=== PATIENT | female | born 1985 | race Caucasian/White ===

== ENCOUNTER → 2022-08-13 14:18 | Outpatient (BNVA) | payer OTHER, MEDICAID, SELFPAY | PROVIDERS: PCP Internal Medicine; Visit Provider Physician Assistant | DX: M54.12 Radiculopathy, cervical region (principal) | CPT/HCPCS: 99212 ==

== ENCOUNTER 2023-02-01 14:50 | Outpatient (AMB) | payer MEDICAID, SELFPAY ==
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
== END 2023-02-01 15:56 | disposition home or self-care (01) ==
PROVIDERS: PCP Internal Medicine; Visit Provider Physician Assistant
DX: M54.12 Radiculopathy, cervical region (principal); M54.9 Dorsalgia, unspecified
CPT/HCPCS: 99213

== ENCOUNTER 2023-02-01 14:50 | Outpatient (REF) | payer MEDICAID, SELFPAY ==
--- NOTE | ~2023-02-01 | XR_ITS ---
EXAMINATION: XR CERVICAL SPINE CLINICAL INFORMATION: Radiculopathy in the cervical spine COMPARISON: MRI from July 2022 TECHNIQUE: AP, lateral, lateral flexion and extension views FINDINGS: Patient is status post anterior fusion at the level of C5-C7 with compression plate and screws. There is fusion of vertebral bodies and no instability. No instability seen on flexion and extension views also. Soft tissues are normal. XR/XR cervical spine 4V IMPRESSION: Postoperative fusion of C5-C7 with no instability or soft tissue abnormalities.
--- NOTE | ~2023-02-01 | XR_ITS ---
EXAMINATION: XR THORACOLUMBAR SPINE CLINICAL INFORMATION: Pain in thoracic COMPARISON: None available. TECHNIQUE: AP and lateral views of thoracic spine FINDINGS: The vertebral alignment is normal. No intrinsic bony abnormality. The disc heights and neural foramina are well maintained. The endplates and posterior elements are normal. No fracture or subluxation. The surrounding prevertebral soft tissues are unremarkable. XR/XR thoracic spine 2V IMPRESSION: No compression fractures or subluxations are identified. The disc spaces are preserved. No endplate changes are seen. The prevertebral soft tissues are normal. The foramina are patent.
== END 2023-02-01 14:51 | disposition home or self-care (01) ==
LOC: HO.HOSX 14:50
PROVIDERS: PCP Internal Medicine; Visit Provider Physician Assistant
DX: M54.12 Radiculopathy, cervical region (principal); M54.9 Dorsalgia, unspecified
CPT/HCPCS: 72050; 72070; 99212

== ENCOUNTER 2023-02-22 13:45 | Outpatient (AMB) | payer MEDICAID, SELFPAY ==
--- NOTE | 2023-02-22 13:56 | HO.SPINEOV ---
Intake Intake Visit Reasons: 3 weeks f/up Intake Note: Ms. Marcelo is here today for her 3wk f/up. Compliance Program Manager Required: No Assessment & Plan Assessment & Plan (1) Cervical radiculopathy: Code(s): M54.12 - Radiculopathy, cervical region Plan MRs Marcelo is here in follow up today to review her MRI in the setting of her neck pain, shoulder pain into her arms. Her cervical MRI was done at [facility] just a few weeks ago and indeed it shows there is some slight worsening of the disc herniation at C4-5 above her previous fusion. She has been through physical therapy, medication trials including anti-inflammatories, muscle relaxers etc.. I offered her the option of a cortisone injection at C4-5 but she has had previous bad experiences with those, and they never really gave her any positive affect. Her exam is nonfocal. At this point, she is fed up with things, she just lost her job because she could not deal with the pain in her neck anymore and the repetitive motions. I compared her MRI to the MRI she had done right before she had C5-6 and C6-7 fused and she has similar bulging now as to what she had then. She had a great response at the time of that surgery, so Dr. Candelaria and I offered her the option of C4-5 anterior cervical diskectomy and fusion. Pt was given risk and benefits of surgery including but not limited to infection, hematoma , nerve injury,durotomy, weakness,bowel/bladder injury, persistent pain, adjacent segment disease as well as the option to continue with conservative treatment and patient wishes to proceed with surgery. Pt is aware they should stop their motrin, aspirin 7 days prior to surgery. All questions were answered to the best of our ability. If there is anything about this patients medical history that we have overlooked or concerns you have about us proceeding with surgery we would appreciate any input you can offer Total amount of time spent in this visit was 20 minutes in discussion of symptoms, cervical MRI imaging results and subsequent plan of care Ryan Candelaria MD,PhD [facility]. Coding Level of Care Code Est Pt Level 3 (93429) Diagnoses Cervical radiculopathy M54.12
== END 2023-02-22 14:47 | disposition home or self-care (01) ==
PROVIDERS: PCP Internal Medicine; Visit Provider Physician Assistant
DX: M54.12 Radiculopathy, cervical region (principal)
CPT/HCPCS: 99213

== ENCOUNTER → 2023-02-22 13:45 | Outpatient (BNVA) | payer MEDICAID, SELFPAY | PROVIDERS: PCP Internal Medicine; Visit Provider Physician Assistant | DX: M54.12 Radiculopathy, cervical region (principal) | CPT/HCPCS: 99212 ==

== ENCOUNTER → 2023-05-26 13:57 | Outpatient (BNV) | payer MEDICAID, SELFPAY | PROVIDERS: PCP Internal Medicine; Visit Provider Internal Medicine Cardiovascular Disease | DX: R00.1 Bradycardia, unspecified (principal) | CPT/HCPCS: 93010 ==

== ENCOUNTER 2023-06-09 08:00 | Day surgery (SDC) | payer MEDICAID, SELFPAY ==
--- NOTE | 2023-05-26 | ECG_ITS ---
Test Reason : PREOP Blood Pressure : / mmHG Vent. Rate : 058 BPM Atrial Rate : 058 BPM P-R Int : 184 ms QRS Dur : 092 ms QT Int : 416 ms P-R-T Axes : 047 077 053 degrees QTc Int : 408 ms Sinus bradycardia with sinus arrhythmia Otherwise normal ECG No previous ECGs available Referred By: Piper Uriarte Electronically Signed By:DANIELLE SULLIVAN MD
[2023-05-26 13:27] VITALS: BP 111/64; PULSE 71; RESP 18; O2SAT 97; BMI 34.2
--- NOTE | 2023-05-26 13:42 | HO.ANESPROP2 ---
Documented by User: Piper Uriarte NP 06/08/23 08:49 HPI - Anesthesia Eval Consult details Narrative: 37yo F for C4-5 Ant Cerv Discectomy w/ fusion, 06/09/23 No recent illness No CP/SOB with walking/housework Vapes and smokeless/chew tobacco s/p spinal fusion 2014 Pt reports severe flushing with warming blankets PMFSH Active Problems Active Problems: All Active Problems (Updated 05/26/23 @ 13:14 by Francy Rodriguez RN) Back pain (Acute) Cervical radiculopathy (Acute) Past Medical History Medical History (Updated 05/26/23 @ 13:14 by Francy Rodriguez RN) IBS (irritable bowel syndrome) Depression Anxiety Numbness Family History Family history of problems with anesthesia: No Surgical History Surgical History (Updated 05/26/23 @ 13:15 by Francy Rodriguez RN) Hx of spinal fusion H/O colonoscopy History of Problems with Anesthesia: No Social History Social History Are you a primary home care giver to a significant other at home: No Do you presently have visiting nurse or other home services: No Patient Tobacco Use Status: Current everyday Tobacco user Tobacco use type: Smokeless Tobacco Meds Allergies Allergy/AdvReac Type Severity Reaction Status Date / Time acetaminophen [From NyQuil] Allergy Involuntary Verified 05/26/23 13:17 Spasms dextromethorphan Allergy Involuntary Verified 05/26/23 13:17 [From NyQuil] Spasms doxylamine [From NyQuil] Allergy Involuntary Verified 05/26/23 13:17 Spasms melatonin Allergy Involuntary Verified 05/26/23 13:17 Spasms pseudoephedrine [From NyQuil] Allergy Involuntary Verified 05/26/23 13:17 Spasms Home Medications Medication Instructions Recorded Confirmed Last Taken Type ibuprofen 800 mg tablet 800 mg PO Q8H PRN pain 05/26/23 05/26/23 Unknown History lorazepam 1 mg tablet 1 mg PO BEDTIME PRN Anxiety 05/26/23 05/26/23 Unknown History Exam Height,Weight and Vital Signs: Height 5 ft 6 in Weight 96.162 kg Last Vital Signs Pulse 71 05/26/23 13:27 Resp 18 05/26/23 13:27 BP 111/64 05/26/23 13:27 Pulse Ox 97 05/26/23 13:27 O2 Del Method Room Air 05/26/23 13:27 Pertinent Lab Results Pertinent Lab Results: CMP and CBC 10/2022 from outside facility Narrative Narrative: EKG 05/2022 Vent. Rate : 058 BPM Atrial Rate : 058 BPM P-R Int : 184 ms QRS Dur : 092 ms QT Int : 416 ms P-R-T Axes : 047 077 053 degrees QTc Int : 408 ms Sinus bradycardia with sinus arrhythmia Otherwise normal ECG No previous ECGs available Airway Neck ROM: Limited Loose/Missing/Broken Teeth: No (2 x molar crowns) Heart: RRR Lungs: CTAB Assessment and Plan Assessment Anesthesia Assessment: Anesthesia Plan Discussed, Smoking Cess. Discussed and PAT Visit Final Anesthetic Review Family History of Problems with Anesthesia: No History of Problems with Anesthesia: No Documented by User: Kareen Merritt MD 06/09/23 08:38 [facility] Past Medical History Medical History (Updated 05/26/23 @ 13:14 by Francy Rodriguez RN) IBS (irritable bowel syndrome) Depression Anxiety Numbness Surgical History Surgical History (Updated 05/26/23 @ 13:15 by Francy Rodriguez RN) Hx of spinal fusion H/O colonoscopy Social History Social History Are you a primary home care giver to a significant other at home: No Do you presently have visiting nurse or other home services: No Patient Tobacco Use Status: Current everyday Tobacco user Tobacco use type: Smokeless Tobacco Meds Allergies Allergy/AdvReac Type Severity Reaction Status Date / Time acetaminophen [From NyQuil] Allergy Involuntary Verified 05/26/23 13:17 Spasms dextromethorphan Allergy Involuntary Verified 05/26/23 13:17 [From NyQuil] Spasms doxylamine [From NyQuil] Allergy Involuntary Verified 05/26/23 13:17 Spasms melatonin Allergy Involuntary Verified 05/26/23 13:17 Spasms pseudoephedrine [From NyQuil] Allergy Involuntary Verified 05/26/23 13:17 Spasms Home Medications Medication Instructions Recorded Confirmed Last Taken Type ibuprofen 800 mg tablet 800 mg PO Q8H PRN pain 05/26/23 05/26/23 Unknown History lorazepam 1 mg tablet 1 mg PO BEDTIME PRN Anxiety 05/26/23 05/26/23 Unknown History Exam Airway Mallampati Class: II (2 caps laterally) TM Dist: >3cm Assessment and Plan Final Anesthetic Review NPO: Yes ASA Class: II Final Preanesthetic Review: No Changes in Pt Med Stat, Meds/Allgs Chart Reviewed and Consent Obtained/Reviewed Patient Risk: Low Procedure Risk: Intermediate Anesthetic Plan Anesthetic Plan: GA
[2023-06-09] VITALS (12 sets, daily range): BP systolic 104–119; BP diastolic 58–72; PULSE 55–91; RESP 12–18; TEMP 36.1–37.1; O2SAT 97–99; BMI 35.0
--- NOTE | ~2023-06-09 | FL_ITS ---
EXAMINATION: XR FLUOROSCOPY WITH IMAGES CLINICAL INFORMATION: C4-C5 anterior cervical discectomy and fusion. COMPARISON: Radiographs dated 02/01/2023. TECHNIQUE: Fluoroscopy Supervised By: Dr. Ryan Shook. Fluoroscopy Time: 4.3 seconds. Cumulative Dose: 1.1866 mGy. DAP: 0.4199 Gycm2. Images: 2. FINDINGS: The submitted images show an anterior Low Profile fixator devices situated the C4-C5 level. At C5-C6, there is an anterior fixator plate, with fixator screws. FL/FL guidance in OR IMPRESSION: Intraoperative fluoroscopic guidance is provided during C4-C5 anterior cervical discectomy and fusion. Please see the patient's Operative Report for full procedural details.
--- NOTE | 2023-06-09 07:16 | P.HPSUR_ITS ---
Pre-Procedural Eval Section A - 24 Hr Update-Section A only Date of Service: 06/09/23 The patient is an INPATIENT: No Changes since office visit: No Cold of Flu in the past 2 weeks, No New Medical Problems, No Changes in Medication and No Patient answered all questions The patient has been examined within 24 hours of the surgical procedure. The History & Physical has been completed within 30 days and I have reviewed it.: No Section B - Complete if H&P > 30 days Chief Complaint: Radiculopathy, cervical region Allergies: Allergies Allergy/AdvReac Type Severity Reaction Status Date / Time acetaminophen [From NyQuil] Allergy Involuntary Verified 05/26/23 13:17 Spasms dextromethorphan Allergy Involuntary Verified 05/26/23 13:17 [From NyQuil] Spasms doxylamine [From NyQuil] Allergy Involuntary Verified 05/26/23 13:17 Spasms melatonin Allergy Involuntary Verified 05/26/23 13:17 Spasms pseudoephedrine [From NyQuil] Allergy Involuntary Verified 05/26/23 13:17 Spasms Review of Systems Sugical H&P ROS: Negative: Constitution, Cardiovascular, Respiratory, Neurolo gical, Psychiatric, Hem-Onc, Allergic/Immunologic, Gastrointestinal, Genitourinary, Musculoskeletal, Integumentary, Endocrine and Eyes/Ears/Nose/Throat Exam Surgical H&P Exam: Not Evaluated: HEENT, Not Evaluated: Heart, Not Evaluated: Lungs, Not Evaluated: Extremities, Not Evaluated: Abdomen, Not Evaluated: Skin and Not Evaluated: Neurological Plan Diagnosis/Plan: Unchanged C4-5 anterior cervical diskectomy and fusion Time Spent With Patient Time: Total time managing care of this patient today __5__ minutes.
--- OUTSIDE RECORDS SUMMARY | 2023-06-09 08:10 | XMS_ITS | Continuity of Care Document ---
Author Name Unknown Organization [facility] Address [address] [place] [address]- Care Team Providers Care Industrial Spray Painter Name Role Phone David Albright DO Primary Care Physician Encounter [facility] Date(s): 11/19/22 - 11/19/[address] [address]- Discharge Disposition: A-D/C Home Attending Physician: Israel Banks MD Admitting Physician: Israel Banks MD Referring Physician: Not on Staff, Referring MD Allergies, Adverse Reactions, Alerts Substance Reaction Severity Status Diphendramine HCL Restless leg syndrome A ctive Immunizations Given and Recorded Vaccine Date Status Refusal Reason influenza virus vaccine, inactivated 02/14/07 Give n Human Papillomavirus Vaccine 1 02/14/07 Given Human Papillomavirus Vaccine 2 10/03/06 Given Human Papillomavirus Vaccine 3 07/27/06 Given Tet/Diphth/Acel, Pertussis (oldterm) 4 06/28/06 Gi santos Meningococcal Conjugate Vaccine 5 06/28/06 Given Influenza Live (intranasal) (oldterm) 6 03/30/06 G iven Influenza Live (intranasal) (oldterm) 7 05/04/04 G iven Hepatitis B Vaccine (old term) 10/22/03 Given Hepatitis B Vaccine (old term) 07/08/03 Given Hepatitis B Vaccine (old term) 05/23/01 Given tetanus-diphtheria toxoids (Td) 05/23/01 Given Measles/Mumps/Rubella Virus Vaccine 01/28/98 Given Measles/Mumps/Rubella Virus Vaccine 04/12/89 Given Poliovirus Vaccine, Inactivated 02/11/93 Given Poliovirus Vaccine, Inactivated 07/18/89 Given Poliovirus Vaccine, Inactivated 05/22/88 Given Poliovirus Vaccine, Inactivated 03/15/88 Given Diphth/Pertussis,Acel/Tetanus (oldterm) 02/11/93 G iven Diphth/Pertussis,Acel/Tetanus (oldterm) 07/18/89 G iven Diphth/Pertussis,Acel/Tetanus (oldterm) 07/15/88 G iven Diphth/Pertussis,Acel/Tetanus (oldterm) 05/22/88 G iven Diphth/Pertussis,Acel/Tetanus (oldterm) 03/15/88 G iven Haemophilus B Conj Vaccine (oldterm) 07/18/89 Give n 1Admin Note: gardisil #3 2Admin Note: #2 gardisil 3Admin Note: gardasil private #1 4Admin Note: Adacel 5Admin Note: State 6Admin Note: FLUMIST 7Admin Note: FLUMIST Medications gabapentin 100 mg oral capsule 100 mg, 1, capsule, By Mouth, Daily, Refills 0, Maintenance, 03/24/22 11:56:00 EST, Partial fill upon patient request if the prescription is for a schedule II opioid drug. Start Date: 03/24/22 Status: Ordered Junel Fe 1.5/30 oral tablet 1 tablet, By Mouth, Daily, # 28 tablet, 0 Refills, Maintenance, 03/31/17 9:42:46, Tablet Start Date: 03/31/17 Status: Ordered LORazepam 1 mg oral tablet 1 tablet = 1 mg, By Mouth, Daily, 0 Refills, Maintenance, 03/24/22 11:56:00 EST, Tablet, Partial fill upon patient request if the prescription is for a schedule II opioid drug. Start Date: 03/24/22 Status: Ordered Vitamin D3 oral tablet 1 tablet = 10 mcg, By Mouth, Daily, # 30 tablet, 0 Refills, Maintenance, 06/05/22 14:32:00 EST, Tablet, Partial fill upon patient request if the prescription is for a schedule II opioid drug. Start Date: 06/05/22 Status: Ordered Problem List Condition Confirmation Course Effective Dates Status Health St atus Informant Obese class I Confirmed Active Vital Signs Most recent to oldest [Reference Range]: 1 2 3 Height 168 cm (11/19/22 12:53 PM) 168 cm (11/19/22 10:04 AM) Weight 91 kg (11/19/22 12:53 PM) 91 kg (11/19/22 10:04 AM) Oxygen Saturation [94-100 %] 100 % (7/28/23 12:53 PM) 98 % (11/19/22 10:04 AM) 99 % (11/19/22 10:04 AM) Pulse Rate [55-90 bpm] 52 bpm *L* (11/19/22 12:53 PM) 88 bpm (11/19/22 10:04 AM) 57 bpm (11/19/22 10:04 AM) Body Mass Index [18.5-24.99 kg/m2] 32.24 kg/m2 *>HHI* (11/19/22 12:53 PM) Blood Pressure [90-138/55-84 mm Hg] 109/65mm Hg (11/19/22 12:53 PM) 127/59mm Hg (11/19/22 10:04 AM) Respiratory Rate [16-30 br/min] 19 br/min (11/19/22 12:53 PM) 20 br/min (11/19/22 10:04 AM) 18 br/min (11/19/22 10:04 AM) Temperature [96.8-100.4 DegF] 97.3 DegF (11/19/22 10:04 AM) Mode of Delivery (Oxygen) Room air (11/19/22 12:53 PM) Room air (11/19/22 10:04 AM) Room air (11/19/22 10:04 AM) Blood pressure sites Arm, right (11/19/22 12:53 PM) Temperature Route Temporal (11/19/22 10:04 AM) Dry Weight 91 kg (11/19/22 12:53 PM) 91 kg (11/19/22 10:04 AM) Social History Social History Type Response Smoking Status Never smoker entered on: 08/27/14 Sex Note * Darren GARCIA, Israel Kelly: PERFORM Event Display: Patient Education Leaflets Authored Date: [id number] Unknown Causes of Abdominal Pain (Adult) ?? [id number] Unknown Causes of Abdominal Pain (Adult) The exact cause of your belly (abdominal) pain is not clear. Your exam and tests don't suggest a dangerous cause at this time. This does not mean that this is something to worry about. Everyone likesto know the exact cause of the problem. But sometimes with belly pain, there is no clear-cut cause,and this could be a good thing. Your symptoms can be treated, and you should feel better.?? Your condition does not seem serious now. But sometimes the signs of a serious problem may take more time to appear. For this reason,??it's important for you to watch for any new symptoms, problems,??or worsening of your condition. Over the next few days, the abdominal pain may come and go. Or it may be constant. Other common symptoms can include nausea and vomiting. Sometimes it can be difficult to tell if you feel nauseous. You may just feel bad and not connect that feeling to nausea. Constipation, diarrhea, and a fever maygo along with the pain. The pain may continue even if treated correctly over the following days. Depending on how things go, sometimes the cause can become clear and you may need more??or different treatment. You may also need other evaluations, medicines, or tests. Home care Your healthcare provider may prescribe medicine for pain, symptoms, or an infection. ??Follow the healthcare provider's instructions for taking these medicines. General care ??? Rest as much as you can until your next exam. No strenuous activities. ??? Try to not do anything that may have caused your symptoms. This might be not taking any medicines unless otherwise directed by your healthcare provider. It might be not eating certain foods or doing certain activities. ??? Find positions that ease discomfort. A small pillow placed on your belly may help relieve pain. ??? Something warm on your belly such as a heating pad may help, but be careful not to burn yourself. Diet ??? Don???t??force yourself to eat, especially if having cramps, vomiting, or diarrhea. ??? Water is important so you don't get dehydrated. Soup may also be good. Sports drinks may also help, especially if they are not too acidic. Don't drink sugary drinks as this can make things worse. Take liquids in small amounts. Don???t??guzzle them. ??? Caffeine sometimes makes the pain and cramping worse. ??? Don???t take??dairy products if you have vomiting or diarrhea. ??? Don't eat large amounts at a time. Eat several small meals during the day instead of 2 or 3 larger meals. Wait a few minutesbetween bites. ??? Eat a diet low in fiber (called a low-residue diet). Foods allowed include refined breads, white rice, fruit and vegetable juices without pulp, tender meats. These foods will pass more easily through the intestine. ??? Don???t have??whole-grain foods, whole fruits and vegetables,meats, seeds and nuts, fried or fatty foods, dairy, alcohol and spicy foods until your symptoms go away. ?? Follow-up care Follow up with your healthcare provider, or as advised, if your pain does not begin to improve in the next 24 hours. ?? Call 911 Call?? 911 if any of these occur: ??? Trouble breathing ??? Confusion ??? Fainting or loss of consciousness ??? Rapid heart rate ??? Seizure ?? When to seek medical advice Call your healthcare provider right away if any of these occur: ??? Pain gets worse or moves to theright lower abdomen ??? New or worsening vomiting or diarrhea ??? Swelling of the abdomen ??? Unable to pass stool for more than??3 days ??? Fever of 100.4??F (38??C) or higher, or as directed by your healthcare provider ??? Blood in vomit or bowel movements (dark red or black color) ??? Yellow color of eyes and skin (jaundice) ??? Weakness, dizziness ??? Chest, arm, back, neck, or jaw pain ??? Can't keep down medicines, liquids, or water because of too much vomiting ??? If you have a vagina: unexpected vaginal bleeding or missed period ?? Last Reviewed Date: 2021 ?? [id number] The [employer]. All rights reserved. This information is not intended as a substitute for professional medical care. Always follow your healthcare professional's instructions. ?? Patient Care team information Care Team Personnel Name: Cruzito Nayak MD Position: [facility] Physician - Pediatrics Member Role: Lifetime Consulting Physician Address: Address: [address] [place] [address] [place] [address]- Name: David Albright DO Position: [facility] Physician - Primary Care Member Role: PCP Address: Address: [address] [place] [address] [address] [place] [address]- [place] Name: Israel Banks MD Position: [facility] ED Medicine MD Member Role: Admitting Physician Address: Address: [address] [place] [address] [place] [address]- Name: Marge Jeffrey Position: [facility] ED TA [facility] Member Role: Patient Care Provider Name: Betty Pradhan RN Position: [facility] ED RN W/OE and Tasks Member Role: Patient Care Provider Name: Wilma Amaro Position: [facility] ED [facility] Member Role: E Commerce Strategist Care Team Related Persons Name: SHUN STEPHENSON Address: [place] [address] Name: IRIS STEPHENSON Address: home [address] [place] [address]
--- OUTSIDE RECORDS SUMMARY | 2023-06-09 08:10 | XMS_ITS | Continuity of Care Document ---
Author Name Unknown Organization [facility] Address [address] [place] [id number]- Care Team Providers Care Director Of Photography Name Role Phone David Albright DO Primary Care Physician Encounter [facility] Date(s): 11/23/22 - 12/23/22 [facility] [address] [place] [id number]- Allergies, Adverse Reactions, Alerts Substance Reaction Severity [...] atus Informant Obese class I Confirmed Active Social History Social History Type Response Smoking Status Never smoker entered on: 08/27/14 Sex Patient Care team information Care Team Personnel Name: Cruzito Nayak MD Position: [facility] Physician - Pediatrics Member Role: Lifetime Consulting Physician Address: Address: [address] [place] [address] [place] [address]- Name: David Albright DO Position: [facility] Physician - Primary Care Member Role: PCP Address: Address: [address] [place], [place] [id number] [place] [address]- [place] Care Team Related Persons Name: SHUN STEPHENSON Address: [place] [address] Name: IRIS STEPHENSON Address: home [address] [place] [address]
--- OUTSIDE RECORDS SUMMARY | 2023-06-09 08:10 | XMS_ITS | Continuity of Care Document ---
Author Name Unknown Organization [facility] Address [address] [facility] [facility] [place] [address]- Care Team Providers Care Banquet Food Server Name Role Phone David Albright DO Primary Care Physician [place] [facility] [place]23 - 03/05/23 [facility] [address] [place] [address]- Attending Physician: AdmDoug padilla Admitting Physician: AdmtrDoug Referring Physician: Admtr, ArNash Allergies, Adverse Reactions, Alerts Substance Reaction Severity [...] Care team information Care Team Personnel Name: Nael GARCIA, Cruzito Mcleod Position: [facility] Physician - Pediatrics Member Role: Lifetime Consulting Physician Address: Address: [address] [place] [address] [place] [address]- [place] Name: David Albright DO Position: S Physician - Primary Care Member Role: PCP Address: Address: [address] [place] [address] [address] [place] [address]- Care Team Related Persons Name: SHUN STEPHENSON Address: [place] [address] Name: IRIS STEPHENSON Address: home [address] [place] [address]
--- OUTSIDE RECORDS SUMMARY | 2023-06-09 08:10 | XMS_ITS | Continuity of Care Document ---
Author Name Unknown Organization [facility] Address [address] [facility] [place] [address]- Care Team Providers Care Taker Out Name Role Phone David Albright DO Primary Care Physician Encounter [facility] [place](s): 01/20/23 - 03/05/23 [facility] [address] [place] [address]- Attending Physician: Gonzalez Dozier MD Admitting Physician: Gonzalez Dozier MD Referring Physician: David Albright DO Allergies, Adverse Reactions, Alerts Substance Reaction Severity [...] Team Personnel Name: Cruzito Nayak MD Position: [facility] Physician - Pediatrics Member Role: Lifetime Consulting Physician Address: Address: [address] [place] [address] Pediatric Services [facility] [place] [address]- Name: David Albright DO Position: S Physician - Primary Care Member Role: PCP Address: Address: [address] [place] [address] [address] [place] [address]- Care Team Related Persons Name: SHUN STEPHENSON Address: [place] [address] Name: IRIS STEPHENSON Address: home [address] [place] [address]
[2023-06-09 08:18] LABS: UPreg QC Valid YES; Urine Pregnancy NEGATIVE (NEGATIVE)
[2023-06-09] MEDS: Gabapentin 300 MG CAPSULE PO (08:47)
[2023-06-09] MEDS: methocarbamoL 750 MG TABLET PO (08:47)
[2023-06-09] MEDS: Lactated Ringers 1,000 ML 100 ML IVCONT (09:07)
[2023-06-09] MEDS: Midazolam HCl 5 MG/ML VIAL 2 MG IVPUSH (09:19)
--- NOTE | 2023-06-09 11:24 | W.PM.OPN ---
Operative Note Operative Note Date of Service: 06/09/23 Narrative: Preoperative Diagnosis: Adjacent degenerative disc disease with neck pain Procedure: C4-5 Anterior discectomy, arthrodesis and implantation cage ; C4-5 anterior instrumentation ; local autograft; microscope Informed Consent was obtained for this operation. I have explained the nature, purpose and benefits of the operation. I have discussed the risks and benefit of the operation including possible complications or adverse events with patient/family. Alternative(s) were discussed with the patient with their relative benefits and risks as well as the consequences of not accepting the operation were included in obtaining consent. Surgeon: ALICJA CHIRINOS MD, PHD Procedure Assisted By: isaac Castrejon Description of Procedure: This patient is suffering from intractable neck pain. She status post C5-C6 and C6-7 anterior diskectomy and fusion in another institution. MRI shows adjacent degenerative disc disease with a central small disc herniation. She was offered an anterior diskectomy and fusion C4-C5. The procedure complications were explained. The patient was consented. The patient was brought to the operating room and endotracheally intubated. The patient was put in supine position with slight extension of the neck. Prep and drape was done followed by timeout. A mid cervical incision was made followed by opening of the platysma. The prevertebral fascia was reached following the natural planes while the physician psychological assistant provided manual retraction. The prevertebral fascia was opened to expose the disc space. A spinal needle was placed in the disk space to confirm the correct level with xray. The longus colli muscles were released bilaterally and a self retaining retractor was inserted. Two [place] pins were placed in the C4 and C5 vertebral bodies and distraction was give over the interspace. The discectomy was completed toward the posterior annulus of the disc. The microscope was brought in. The remainder of the discectomy was completed. The posterior ligament was opened and resected to expose the underlying dura. Osteophytes were resected from the body of C4 and C5 and saved for autograft. Bilateral foraminotomies were done. The endplates were prepared after which a 5 mm cage filled with autograft was inserted into the disc space. A separate attached plate was locked down with 2 x 14 mm screws as anterior instrumentation. Final x-rays in AP and lateral projection showed a satisfactory position of the implant. The physician psychological assistant took over. The [place] pin was removed. Hemostasis was done. He closed the incision in 2 layers with a 3-0 Vicryl. Steri-Strips used to approximate incision. An OpSite with Tegaderm was used to cover the incision. All sponge and needle counts were correct. Patient was extubated and transported in stable is to recovery room. Anesthesia: General Estimated Blood Loss (ml): 10 mL Duration of Surgery: 60 minutes Postoperative Plan: Discharge home Complications: None
--- NOTE | 2023-06-09 11:34 | PM.DS ---
DS: Providers Provider Date of Service: 06/09/23 Date of discharge: 06/09/23 Primary care physician: David Albright DO, MD Admitting clinician: Atif Candelaria DS: Diagnosis Discharge Diagnosis (1) Cervical radiculopathy: Status: Acute DS: Summary Time Attestation Discharge coordination time: Less than 30 minutes Quality: Safe Use of Opioids Does Pt have an Active Cancer Diagnosis on the Problem List?: No Quality: Stroke Does the patient have a stroke diagnosis?: No Physical Exam Vital Signs: Vital Signs: Last Vital Signs Temp 98.2 F 06/09/23 08:33 Pulse 62 06/09/23 08:33 Resp 18 06/09/23 08:33 BP 111/61 06/09/23 08:33 Pulse Ox 98 06/09/23 08:33 O2 Del Method Room Air 06/09/23 08:33 BMI result Body Mass Index 35.0 DS: Data Data Completed and Pending Labs on day of discharge: Laboratory Results - last 24 hr 06/09/23 08:05 Urine Test NEGATIVE Discharge Plan Discharge Patient Disposition: Home, Self-Care Referrals: David Albright DO, MD [Primary Care Provider] - 1 Week Discharge Medications: New oxycodone 5 mg tablet 5 mg PO Q4H PRN (Reason: pain) Qty: 30 0RF Rx Instructions: Partial Fill upon patient request. Continued ibuprofen 800 mg tablet 800 mg PO Q8H PRN (Reason: pain) lorazepam 1 mg tablet 1 mg PO BEDTIME PRN (Reason: Anxiety) Discharge Orders: Discharge Order (Routine); Ordered 06/09/23 Ordered By: Ryan Shook Diet: Advance to usual diet Activity on Discharge: As tolerated Activity Restrictions/Additional Instructions: After your spinal surgery we ask you to observe the following restrictions/guidelines: Activity: It is normal to feel some discomfort as you increase your activity, but that will improve with time. We ask you avoid heavy lifting or acitivities that cause pain. As a general rule, 8lbs is a safe limit for lifting right after surgery. Walk as much as you feel comfortable but not to exhaustion. You will feel extra tired the first few days after surgery. Stay well hydrated. It is OK to walk up and down stairs You may return to driving when you are off narcotics (such as vicodin, oxycodone, dilaudid, etc), and you are back to normal functional capacity. If you have any concerns please check with office before driving. Return to work is specific to each patient and each surgery, so please speak with your doctor/PA at first follow up. Please bring paperwork such as FMLA at that time if you need it filled out. Medications: For optimum pain control, it is best to start with a combination of 500 mg of Tylenol every 4 hours with 600 mg of Motrin every 8 hours, and use narcotics as needed in between for breakthrough pain. We will give you a short supply of narcotics after surgery (usually one weeks worth). If you need more please call the office but do not use more than prescribed. You will need to give our office 48 hours notice if you need narcotics refilled and we do not fill narcotics on weekends or evenings. If you are on a narcotic, it is a good idea to take a stool softener such as colace or senna to avoid constipation If you take blood thinner such as aspirin, Plavix, Coumadin, Effient, Eliquis etc for conditions such as Afib, DVT, Pulmonary embolus, coronary disease, stents etc please speak with your surgeon about specific details as to when you can resume these medications. You can resume NSAIDs on post op day 1 (eg: Motrin, Naproxen, etc). Follow up: Please call the office, , after surgery to arrange a 3 week follow up for wound check. Wound Care: You may remove your dressing on the first day after surgery. ?You may ?leave open to air. Please do not remove the steri strips underneath. they will fall off on their own in one week. IT IS NORMAL FOR THE WOUND TO OOZE OR BE BLOODY FOR A FEW DAYS AFTER SURGERY. ?IF THIS HAPPENS JUST PLACE NEW DRESSING OVER IT TO AVOID STAINING CLOTHES. You may shower on post op day # 1 We ask that you do not let the water soak the wound. If it does get wet, just towel dry lightly. Please do not scrub your incision or place any type of chemical/ointment on the wound. No tub baths, pools or jacuzzis for one month. If you have any leaking or redness from your wound, or fevers, please call office
[2023-06-09] MEDS: ondansetron HCL 4 MG/2 ML VIAL IVPUSH (12:19)
--- NOTE | 2023-06-09 12:56 | PM.DS ---
DS: Providers Provider Date of Service: 06/09/23 Primary care physician: David Albright DO, MD DS: Diagnosis Discharge Diagnosis (1) Cervical radiculopathy: Status: Acute DS: Summary Time Attestation Discharge coordination time: Less than 30 minutes Quality: Safe Use of Opioids Does Pt have an Active Cancer Diagnosis on the Problem List?: No Quality: Stroke Does the patient have a stroke diagnosis?: No Physical Exam Vital Signs: Vital Signs: Last Vital Signs Temp 98.8 F 06/09/23 11:48 Pulse 66 06/09/23 12:15 Resp 16 06/09/23 12:15 BP 110/60 06/09/23 12:15 Pulse Ox 98 06/09/23 12:15 O2 Del Method Simple Mask 06/09/23 12:15 O2 Flow Rate 6 06/09/23 12:15 BMI result Body Mass Index 35.0 DS: Data Data Completed and Pending Labs on day of discharge: Laboratory Results - last 24 hr 06/09/23 08:05 Urine Test NEGATIVE Discharge Plan Discharge Patient Disposition: Home, Self-Care Referrals: David Albright DO, MD [Primary Care Provider] - 1 Week Discharge Medications: New oxycodone 5 mg tablet 5 mg PO Q4H PRN (Reason: pain) Qty: 30 0RF Rx Instructions: Partial Fill upon patient request. ondansetron 4 mg tablet,disintegrating 4 mg PO Q8H PRN (Reason: nausea and vomiting) 4 Days Qty: 20 0RF Continued ibuprofen 800 mg tablet 800 mg PO Q8H PRN (Reason: pain) lorazepam 1 mg tablet 1 mg PO BEDTIME PRN (Reason: Anxiety) Discharge Orders: Discharge Order (Routine); Ordered 06/09/23 Ordered By: Ryan Shook Diet: Advance to usual diet Activity on Discharge: As tolerated Activity Restrictions/Additional Instructions: After your spinal surgery we ask you to observe the following restrictions/guidelines: Activity: It is normal to feel some discomfort as you increase your activity, but that will improve with time. We ask you avoid heavy lifting or acitivities that cause pain. As a general rule, 8lbs is a safe limit for lifting right after surgery. Walk as much as you feel comfortable but not to exhaustion. You will feel extra tired the first few days after surgery. Stay well hydrated. It is OK to walk up and down stairs You may return to driving when you are off narcotics (such as vicodin, oxycodone, dilaudid, etc), and you are back to normal functional capacity. If you have any concerns please check with office before driving. Return to work is specific to each patient and each surgery, so please speak with your doctor/PA at first follow up. Please bring paperwork such as FMLA at that time if you need it filled out. Medications: For optimum pain control, it is best to start with a combination of 500 mg of Tylenol every 4 hours with 600 mg of Motrin every 8 hours, and use narcotics as needed in between for breakthrough pain. We will give you a short supply of narcotics after surgery (usually one weeks worth). If you need more please call the office but do not use more than prescribed. You will need to give our office 48 hours notice if you need narcotics refilled and we do not fill narcotics on weekends or evenings. If you are on a narcotic, it is a good idea to take a stool softener such as colace or senna to avoid constipation If you take blood thinner such as aspirin, Plavix, Coumadin, Effient, Eliquis etc for conditions such as Afib, DVT, Pulmonary embolus, coronary disease, stents etc please speak with your surgeon about specific details as to when you can resume these medications. You can resume NSAIDs on post op day 1 (eg: Motrin, Naproxen, etc). Follow up: Please call the office, , after surgery to arrange a 3 week follow up for wound check. Wound Care: You may remove your dressing on the first day after surgery. ?You may ?leave open to air. Please do not remove the steri strips underneath. they will fall off on their own in one week. IT IS NORMAL FOR THE WOUND TO OOZE OR BE BLOODY FOR A FEW DAYS AFTER SURGERY. ?IF THIS HAPPENS JUST PLACE NEW DRESSING OVER IT TO AVOID STAINING CLOTHES. You may shower on post op day # 1 We ask that you do not let the water soak the wound. If it does get wet, just towel dry lightly. Please do not scrub your incision or place any type of chemical/ointment on the wound. No tub baths, pools or jacuzzis for one month. If you have any leaking or redness from your wound, or fevers, please call office
[2023-06-09] MEDS: oxyCODONE HCl Immed Release 5 MG TABLET PO (13:15)
[2023-06-09] MEDS: fentaNYL citrate/PF 100 MCG/2 ML VIAL 50 MCG IVPUSH (13:15)
== END 2023-06-09 15:15 | disposition home or self-care (01) ==
PROVIDERS: Nurse Practitioner; PCP Internal Medicine; Visit Provider Neurological Surgery
PROC: (CPT 22551; principal; 2023-06-09 10:20)
DX: M54.12 Radiculopathy, cervical region (principal); Z98.1 Arthrodesis status
CPT/HCPCS: 22551; 22853; 22845; 20936; 81025; 93005; C1713; J0131; J0690; J1100; J1170; J2250; J2405; J2704; J3010

== ENCOUNTER → 2023-06-09 08:00 | Outpatient (BNV) | payer MEDICAID, SELFPAY | PROVIDERS: PCP Internal Medicine; Visit Provider Neurological Surgery | DX: M54.12 Radiculopathy, cervical region (principal) | CPT/HCPCS: 20936; 22551; 22845; 22853; 99499 ==

== ENCOUNTER 2023-06-30 13:45 | Outpatient (AMB) | payer MEDICAID, SELFPAY ==
--- NOTE | 2023-06-30 13:47 | HO.SPINEOV ---
Intake Intake Visit Reasons: 1st post op Intake Note: Ms. Marcelo is here today for 1st Post op. Applications Tester Required: No Allergies acetaminophen [From NyQuil] Allergy (Verified 05/26/23 13:17) Involuntary Spasms dextromethorphan [From NyQuil] Allergy (Verified 05/26/23 13:17) Involuntary Spasms doxylamine [From NyQuil] Allergy (Verified 05/26/23 13:17) Involuntary Spasms melatonin Allergy (Verified 05/26/23 13:17) Involuntary Spasms pseudoephedrine [From NyQuil] Allergy (Verified 05/26/23 13:17) Involuntary Spasms Assessment & Plan Assessment & Plan (1) Cervical radiculopathy: Code(s): M54.12 - Radiculopathy, cervical region Plan Mrs Marcelo is here in follow-up today for her 1st postoperative visit. She is about 3-4 weeks out from her ACDF C4-5. The neck pain that she had before surgery is gone. She does have postoperative neck pain and discomfort at times when she turns her head in different directions. The arm pains that she was having before surgery are gone. She is having little bit of discomfort around her incision site and some numbness up under her chin. I suspect all that will get better in time. She is slowly increase her activities as directed. We discussed activity guidelines, restrictions and expectations after anterior cervical fusion. I would like to see her back in 6 weeks with a set of x-rays. Overall she is doing great. Ryan Candelaria MD, PhD [facility] Orders: Orders XR cervical spine 4V Today M54.12 - Radiculopathy, cervical region Coding Level of Care Code Global (72612) Diagnoses Cervical radiculopathy M54.12
== END 2023-06-30 14:05 | disposition home or self-care (01) ==
PROVIDERS: PCP Internal Medicine; Visit Provider Physician Assistant
DX: M54.12 Radiculopathy, cervical region (principal)
CPT/HCPCS: 99024

== ENCOUNTER 2023-06-30 13:45 | Outpatient (REF) | payer MEDICAID, SELFPAY | END 2023-06-30 13:46 | disposition home or self-care (01) | LOC: HO.HOSX 13:45 | PROVIDERS: PCP Internal Medicine; Visit Provider Physician Assistant | DX: M54.12 Radiculopathy, cervical region (principal); Z47.89 Encounter for other orthopedic aftercare | CPT/HCPCS: 99212 ==

== ENCOUNTER 2023-07-27 10:07 | Outpatient (REF) | payer MEDICAID, SELFPAY ==
--- NOTE | ~2023-07-27 | XR_ITS ---
EXAMINATION: XR CERVICAL SPINE CLINICAL INFORMATION: Radiculopathy COMPARISON: Cervical spine x-rays February 01, 2023 TECHNIQUE: 4 views of the cervical spine were obtained. FINDINGS: The cervical spine is visualized in its entirety. There is stable anterior fusion of C5-C7 with interval ACDF of C4 on C5. There is no evidence of hardware failure. Alignment is within normal limits on neutral positioning although there is mild anterolisthesis of C3 on C4 with flexion positioning. The cervical vertebral body heights are maintained. The C2/3 and C3/4 cervical vertebral body heights are maintained. No prevertebral soft tissue swelling. Visualized lung apices are well aerated. XR/XR cervical spine 4V IMPRESSION: 1. Postsurgical changes of the cervical spine. No evidence of hardware failure. 2. Alignment is within normal limits on neutral positioning although there is mild anterolisthesis of C3 on C4 with flexion positioning.
== END 2023-07-27 10:08 | disposition home or self-care (01) ==
LOC: HO.HOSX 10:07
PROVIDERS: Visit Provider Physician Assistant
DX: M54.12 Radiculopathy, cervical region (principal); Z47.89 Encounter for other orthopedic aftercare
CPT/HCPCS: 72050; 99212

== ENCOUNTER 2023-07-27 11:12 | Outpatient (AMB) | payer MEDICAID, SELFPAY ==
--- NOTE | 2023-07-27 11:24 | HO.SPINEOV ---
Intake Intake Visit Reasons: Post-Op Intake Note: Ms. Marcelo is here for 2nd post op Lieutenant General Required: No Allergies acetaminophen [From NyQuil] Allergy (Verified 05/26/23 13:17) Involuntary Spasms dextromethorphan [From NyQuil] Allergy (Verified 05/26/23 13:17) Involuntary Spasms doxylamine [From NyQuil] Allergy (Verified 05/26/23 13:17) Involuntary Spasms melatonin Allergy (Verified 05/26/23 13:17) Involuntary Spasms pseudoephedrine [From NyQuil] Allergy (Verified 05/26/23 13:17) Involuntary Spasms Assessment & Plan Assessment & Plan (1) Cervicalgia: Code(s): M54.2 - Cervicalgia Plan Procedure: C4-5 ACDF Keisha comes in today for a subsequent follow up visit. She called the office yesterday stating that she was having quite a bit of pain in her posterior neck. She was requesting an earlier appointment to discuss this. I put her on the schedule for today. She states that she began having worsening posterior neck pain since late last week, and feels it is very well localized without radiation down her arms. No associate numbness / tingling or burning. OTCs have not been helpful. I discussed the possibility of trapezius irritation post-operatively, and advised her that this symptom is very common after our ACDF procedures. No new neurological deficits. Patient is able to ambulate well, rises from a seated position without difficulty. Incision sites are closed, well healing, with no signs of drainage. I will prescribe her a short course of Cyclobenzaprine QHS x 14 days. She was also encouaged to utilize buprofen and he. The patient requested to keep her appointment with PASQUALE Shook in 2 weeks to discuss progress after muscle relaxers and ibuprofen/heat. Augustine Candelaria MD,PhD [facility] Medications: New cyclobenzaprine 10 mg PO BEDTIME 14 tabs 0RF muscle spasms Coding Level of Care Code Global (32502) Diagnoses Cervicalgia M54.2
== END 2023-07-27 11:41 | disposition home or self-care (01) ==
PROVIDERS: PCP Internal Medicine; Visit Provider Physician Assistant
DX: M54.2 Cervicalgia (principal)
CPT/HCPCS: 99024

== ENCOUNTER 2023-08-12 11:30 | Outpatient (AMB) | payer MEDICAID, SELFPAY ==
--- NOTE | 2023-08-12 11:31 | HO.SPINEOV ---
Intake Visit Reasons: 2nd post op Intake Note: Ms. Marcelo is here today for her 2nd Post-op appointment. Process Control Board Operator Required: No Allergies acetaminophen [From NyQuil] Allergy (Verified 05/26/23 13:17) Involuntary Spasms dextromethorphan [From NyQuil] Allergy (Verified 05/26/23 13:17) Involuntary Spasms doxylamine [From NyQuil] Allergy (Verified 05/26/23 13:17) Involuntary Spasms melatonin Allergy (Verified 05/26/23 13:17) Involuntary Spasms pseudoephedrine [From NyQuil] Allergy (Verified 05/26/23 13:17) Involuntary Spasms Assessment & Plan Assessment & Plan (1) Cervicalgia: Code(s): M54.2 - Cervicalgia Category: Medical Plan Mrs Marcelo is here in follow-up today. She is little over 2 months out from her anterior cervical diskectomy and fusion. The preoperative pain that she had before surgery is gone but she has been dealing with a pain along the lateral edge of her neck with a sharp stabbing pain when she is turning her head. She has no radicular symptoms. Her postoperative x-rays look great. I suspect she is dealing with some kind of muscular inflammation and irritation related to the fusion. I am going to recommend she try trigger point injections and will have her see Stanley GIORDANO at [facility] and see if he can accommodate her with these. I refilled her ibuprofen 800 mg at the [facility] in [facility]. I will see her back in 2 months' time. Ryan Candelaria MD, PhD [facility] [place] [facility] Orders: Referrals Physiatry Referral M54.2 - Cervicalgia Medications: New ibuprofen 800 mg PO Q8H 60 tabs 11RF pain
== END 2023-08-12 11:48 | disposition home or self-care (01) ==
PROVIDERS: PCP Internal Medicine; Visit Provider Physician Assistant
DX: M54.2 Cervicalgia (principal)
CPT/HCPCS: 99024

== ENCOUNTER → 2023-08-12 11:30 | Outpatient (BNVA) | payer OTHER, MEDICAID, SELFPAY | PROVIDERS: PCP Internal Medicine; Visit Provider Physician Assistant | DX: M54.2 Cervicalgia (principal) | CPT/HCPCS: 99212 ==

== ENCOUNTER 2023-10-18 13:34 | Outpatient (AMB) | payer MEDICAID, SELFPAY ==
--- NOTE | 2023-10-18 13:40 | A.SPINEOV_ITS ---
Intake Visit Reasons: 2 month follow up Intake Note: Ms. Marcelo is here today for her two month f/u Optomechanical Engineer Required: No Allergies acetaminophen [From NyQuil] Allergy (Verified 05/26/23 13:17) Involuntary Spasms dextromethorphan [From NyQuil] Allergy (Verified 05/26/23 13:17) Involuntary Spasms doxylamine [From NyQuil] Allergy (Verified 05/26/23 13:17) Involuntary Spasms melatonin Allergy (Verified 05/26/23 13:17) Involuntary Spasms pseudoephedrine [From NyQuil] Allergy (Verified 05/26/23 13:17) Involuntary Spasms Assessment & Plan Assessment & Plan (1) Cervicalgia: Code(s): M54.2 - Cervicalgia Category: Medical Plan Mrs Marcelo is following up today. She is about 4 months out from her anterior cervical fusion at C4-5. She has been doing better. She went to the physiatry team and got the trigger point injections and those did help to a certain degree. She was very sore for the 1st few days afterwards. She continues to corrales however with chronic neck issues with neck pain in the back of her neck along the sides of her neck. It is particularly bad in the morning she will have spasms and a lot of discomfort. It is very predictable and happens every day. She continues to also have pain with lateral movement and rotation of her neck. Specifically to the left she has reduced range of motion. She continues to take ibuprofen and gabapentin as needed to help with the chronic neck pain. We discussed recovery from anterior cervical fusion again. We also talked about the fact that this would be her 3rd disc level fused in that I would expect she will likely always have chronic pain in her neck. This may get better and fluctuate from time to time but I have a feeling she may deal with it continuously down the road. I encouraged her to follow up with the physiatry team for the further trigger point injections. At this point I think she has come as far she can go in terms of surgical recovery. We can follow up on as needed basis. Total amount of time spent in this visit was 20 minutes in discussion of symptoms, cervical xray imaging results and subsequent plan of care Ryan Candelaria MD,PhD [facility] Coding Level of Care Code Est Pt Level 3 (85511) Diagnoses Cervicalgia M54.2
== END 2023-10-18 14:15 | disposition home or self-care (01) ==
PROVIDERS: PCP Internal Medicine; Visit Provider Physician Assistant
DX: M54.2 Cervicalgia (principal)
CPT/HCPCS: 99213

== ENCOUNTER → 2023-10-18 13:34 | Outpatient (BNVA) | payer MEDICAID, SELFPAY | PROVIDERS: PCP Internal Medicine; Visit Provider Physician Assistant | DX: M54.2 Cervicalgia (principal) | CPT/HCPCS: 99212 ==

== ENCOUNTER 2024-05-25 14:49 | Outpatient (REF) | payer MEDICAID, SELFPAY ==
--- NOTE | ~2024-05-25 | XR_ITS ---
CLINICAL HISTORY: M54.2 - Cervicalgia 4 views cervical spine Comparison: None Findings: Normal alignment. Status post fusion at C4-5 and C5 through C7. No hardware complication identified. No instability on flexion-extension. Facets are aligned. No acute fractures or dislocation. No significant degenerative change. Prevertebral soft tissues within normal limits. IMPRESSION: Postoperative changes without hardware complication. No instability on flexion extension. This document has been electronically signed by: Lou Guadalupe MD on 05/29/2024 06:15:30
== END 2024-05-25 14:50 | disposition home or self-care (01) ==
LOC: HO.HOSX 14:49
PROVIDERS: PCP Internal Medicine; Visit Provider Physician Assistant
DX: M54.2 Cervicalgia (principal)
CPT/HCPCS: 72050; 99212

== ENCOUNTER 2024-05-25 14:49 | Outpatient (AMB) | payer MEDICAID, SELFPAY ==
--- OUTSIDE RECORDS SUMMARY | 2024-05-25 14:51 | XMS_ITS | Data Portability ---
Author Organization [facility] Pain Man[facility], PAIN OFFICE Address [address] [place] [address] Care Team Providers Care Hearing Specialist Name Role Phone SALINA MCCURDY Primary Care Provider Assessment Encounter Date Assessment Date Assessment LastModified by Organization Details LastModified Time 09/30/2017 09/30/2017 Keisha Marcelo is a 31 year old right handed woman with neck pain radiating into right upper back. She is S/P ACDF of the cervical spine in 2013 with persistent upper back pain. She has myofascial pain syndrome in her upper back. Trigger points were palpated with reproduction of her pain in the right trapezius muscle and right paraspinal muscle in the cervical spine. Trial of trigger point injection in right trapezius muscle under ultrasound guidance were discussed with her. The risks and benefits of the procedure were discussed and he wishes to proceed and an appointment has been made for the same. chad Not available 09/30/2017 10:44:41 10/03/2017 10/03/2017 Keisha Marcelo is a 31 year old right handed woman with neck pain radiating into right upper back. She is S/P ACDF of the cervical spine in 2013 with persistent upper back pain. She has myofascial pain syndrome in her upper back. Trigger points were palpated with reproduction of her pain in the right trapezius muscle and right paraspinal muscle in the cervical spine. She is here for a trial of trigger point injection in right trapezius muscle under ultrasound guidance . The risks and benefits of the procedure were discussed and she wishes to proceed . She needs to follow up in two weeks to assess the benefits. [email or web address] Not available 10/03/2017 15:27:45 10/17/2017 10/17/2017 Keisha Marcelo is a 31 year old right handed woman with neck pain radiating into right upper back. She is S/P ACDF of the cervical spine in 2013 with persistent upper back pain. She has myofascial pain syndrome in her upper back. Trigger points were palpated with reproduction of her pain in the right trapezius muscle and right paraspinal muscle in the cervical spine. She is here for a repeat trigger point injection in right trapezius muscle under ultrasound guidance . The risks and benefits of the procedure were discussed and she wishes to proceed . She needs to follow up in three weeks to assess the benefits. [email or web address] Not available 10/17/2017 15:26:09 11/07/2017 11/07/2017 Keisha Marcelo is a 31 year old right handed woman with neck pain radiating into upper back, left is greater than right. She is S/P ACDF of the cervical spine in 2013 with persistent upper back pain. She has myofascial pain syndrome in her upper back. Trigger points were palpated with reproduction of her pain in the left trapezius muscle and right paraspinal muscle in the cervical spine. She is here for a trial of trigger point injection in left trapezius muscle under ultrasound guidance . The risks and benefits of the procedure were discussed and she wishes to proceed . She will follow up as needed. [email or web address] Not available 11/07/2017 14:24:58 Plan of Treatment Reminders Order Date Submit Date Provider Last Modified By Organization Details Last Modified Time Details Appointments None record ed. Lab None record ed. Referral None record ed. Procedures None record ed. Surgeries None record ed. Imaging None record ed. Medication Orders None record ed. Patient TargetsNo targets recorded. Patient Instructions Encounter Date Encounter Id Patient Instructions Last Modified By Organization Details Last Modified Time 09/30/2017 [id number] She was advised against bed rest lasting longer than four days and to continue activities as tolerated. [email or web address] Not available 09/30/2017 10:44:11 10/03/2017 [id number] She was advised against bed rest lasting longer than four days and to continue activities as tolerated. [email or web address] Not available 10/03/2017 15:26:34 10/17/2017 [id number] She was advised against bed rest lasting longer than four days and to continue activities as tolerated. [email or web address] Not available 10/17/2017 15:25:49 11/07/2017 [id number] She was advised against bed rest lasting longer than four days and to continue activities as tolerated. [email or web address] Not available 11/07/2017 14:22:34 Reason for Referral None Reported. Problems Name Problem SNOMED Code Status Onset Date Resolution Date Notes Provider Name and Address Organization Details Recorded Time Degeneratio n of cervical interverteb ral disc 01585236 Active Doc dowling MD [address] [facility] , [address], [place], [address], [place] [facility] 8 09:56:54 Muscle pain 33319390 Active Doc dowling MD [address] , [address], [place], [address], [place] [facility] 8 09:57:06 History of cervical spine fusion 1605574629728 Active Doc dowling MD [address] , [address], [place], [address], [place] [facility] 8 09:57:20 Problem Notes None recorded. Procedures Surgical History Date Name Laterality Status Provider Name and Address Organization Details Recorded Time 8 Trigger Point Injections under ultrasound guidance completed Doc Cody MD [address] [facility] , [address], [place], [address], [place] [facility] 11/07/2017 14:23:46 8 Trigger Point Injections under ultrasound guidance completed Doc Cody MD [address] [facility] , [address], [place], [address], [place] [facility] 10/17/2017 15:25:09 8 Trigger Point Injections under ultrasound guidance completed Doc Cody MD [address] [facility] , [address], [place], [address], [place] [facility] 10/03/2017 15:25:47 Back Surgery completed Lee Ann Gonzales [place] [facility] 09/30/2017 09:22:28 Imaging Results None recorded. Procedure Notes None recorded. Medical Equipment None Reported. Allergies No known drug allergies Medications Name Sig Start Date Stop Date Status Note LastModified by Organization Details LastModified Time trazodone 50 mg tablet 09/30 completed Not Available Not Available Not Available sulfamethoxazo le 800 mg-trimethopri m 160 mg tablet 09/30 completed Not Available Not Available Not Available trazodone 100 mg tablet 09/30 completed Not Available Not Available Not Available fluoxetine 20 mg capsule active Not Available Not Available N ot Available escitalopram 20 mg tablet 09/30 completed Not Available Not Available Not Available cyclobenzaprin e 5 mg tablet active as needed Not Available Not Available Not Available 05/14 (28) 1 mg-20 mcg (21)/75 mg (7) tablet active Not Available Not Available N ot Available nitrofurantoin monohydrate/ma crocrystals 100 mg capsule 09/30 completed Not Available Not Available Not Available Vitals Date Recorded Heart rate Oxygen saturation Oxygen saturation in Arterial blood by Pulse oximetry Body height Body mass index (BMI) Body weight Systolic blood pressure Diastolic blood pressure Provider Name and Address Organization Details Last Updated DateTime 8 71 /min 98 % 98 % 167.64 cm 27.4 kg/m2 25312.7 g 126 mm[Hg] 73 mm[Hg] Lee Ann Gonzales [place] [facility] 8 09:14:13 Date Recorded Body height Heart rate Oxygen saturation Oxygen saturation in Arterial blood by Pulse oximetry Systolic blood pressure Diastolic blood pressure Provider Name and Address Organization Details Last Updated DateTime 8 167.64 cm 80 /min 97 % 97 % 110 mm[Hg] 58 mm[Hg] Lee Ann Gonzales [place] [facility] 8 13:58:42 Date Recorded Body height Heart rate Oxygen saturation Oxygen saturation in Arterial blood by Pulse oximetry Systolic blood pressure Diastolic blood pressure Provider Name and Address Organization Details Last Updated DateTime 8 167.64 cm 80 /min 98 % 98 % 120 mm[Hg] 64 mm[Hg] Lee Ann Gonzales [place] [facility] 8 14:58:07 Date Recorded Body height Heart rate Oxygen saturation Oxygen saturation in Arterial blood by Pulse oximetry Systolic blood pressure Diastolic blood pressure Provider Name and Address Organization Details Last Updated DateTime 8 167.64 cm 65 /min 99 % 99 % 135 mm[Hg] 66 mm[Hg] Lee Ann Gonzales [place] [facility] 8 13:43:14 Social History Question Answer Notes LastModified by Organizat ion Details LastModified Time Tobacco Smoking Status Current Every Day Smoker Vapor Not Available [employer] 02/08/2020 03:16:11 What Is Your Level Of Alcohol Consumption? Occasional [id number] Information not available 02/08/2020 Are You Currently Employed? Yes [id number] Information not available 02/08/2020 Which Illicit Or Recreational Drugs Have You Used? 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 With Others Mother Information not available 09/30/2017 Marital Status Single Informatio n not available 09/30/2017 What Was The Date Of Your Most Recent Tobacco Screening? 11/07/2017 [id number] Information not available 02/08/2020 How Many Years Have You Smoked Tobacco? 5 [id number] Information not available 02/08/2020 Sex: Unknown Functional Status None recorded. Mental Status None recorded. Family History Relationship Description Onset Age of this Age Resolved Age Notes LastModified by Organization Details LastModified Time Father Coronary arterioscler osis Not available 2017 09:17:49 Medical History Condition Response Anxiety Disorder Y Headache Y Irritable Bowel Syndrome Y Depression Y Gynecological HistoryNo gynecological history recorded. Obstetrics History GPAL:G 0 P 0 0 0 0 Past Encounters Encounter ID Performer Location Encounter Start Date Encounter Closed Date Diagnosis/Indication Diagnosis SNOMED-CT Code Diagnosis ICD10 Code Diagnosis Note [id number] Doc Cody MD PAIN OFFICE [address] [place] [address] 09/30/2017 08:58:55 09/30/2017 10:52:07 Muscle pain 12065473 M79.1 Degenerati on of cervical intervertebral disc 02770030 M50.30 History of cervical spine fusion 7654786894 101 Z98.1 [id number] Doc Cody MD PAIN OFFICE [address] [place] [address] 10/03/2017 13:25:15 10/03/2017 15:35:37 Muscle pain 94685905 M79.1 Degenerati on of cervical intervertebral disc 57420453 M50.30 History of cervical spine fusion 4456972839 101 Z98.1 [id number] Doc Cody MD [facility] [address] [place] [address] 10/17/2017 14:22:11 10/17/2017 15:27:06 Muscle pain 52644180 M79.1 Degenerati on of cervical intervertebral disc 42114215 M50.30 History of cervical spine fusion 9478690831 101 Z98.1 [id number] Doc Cody MD [facility] [address] [place] [address] 11/07/2017 13:21:23 11/07/2017 14:25:53 Muscle pain 72233579 M79.1 Degenerati on of cervical intervertebral disc 87678467 M50.30 History of cervical spine fusion 0574907863 101 Z98.1 Health Concerns Section Related Observation LastModified by Organization Detai ls LastModified Time None Recorded Concern Status LastModified by Organization Details LastModified Time None Recorded Advance Directives Directive None Recorded Payers Encounter Date Sequence Insurance Name Policy Number Policy Wagner Covered Member ID Wagner Member ID Guarantor Name 09/30/2017 1 [place] [employer] 111 Keisha Fozia [id number] Keisha Fozia 09/30/2017 2 [place] Keisha Fozia [id number] Keisha Fozia 10/03/2017 1 [place] 111 Keisha Fozia [id number] Keisha Fozia 10/03/2017 2 [place] Keisha Fozia [id number] Keisha Fozia 10/17/2017 1 [place] 111 Keisha Fozia [id number] Keisha Fozia 10/17/2017 2 [place] Keisha Fozia [id number] Keisha Fozia 11/07/2017 1 [place] 111 Keisha Fozia [id number] Keisha Marcelo 11/07/2017 2 [place] [facility] Keisha Marcelo [id number] Keisha Marcelo Notes Date Note Type Note Provider Name and Address Organization Details Recorded Time 09/30/2017 text/html Keisha Marcelo is a 31 year old right handed woman with complaints of upper back pain . She is S/P ACDF C 5-6 and C 6-7 levels for numbness in her right hand . The pain started after her neck surgery by Dr. Gonzalez Rodriguez. She states she is very active . She describes the pain as a burning, stabbing pain which is occasionally pulling and tender. Current pain level is 3-9 /10. Pain is aggravated by lifting and holding the weight of her right arm . Pain is relieved a little with application of heat and rest. She has no history of bladder or bowel incontinence.MRI Cervical spine done in 01/20/2016 shows postoperative changes S/P ACDF at C5-6 and C6-7 levels. Minor degenerative changes at C3-4 and C4-5 with no significant impression of nerve roots.She has trialed physical therapy at with some pain benefit. Tramadol did not help.She is doing two jobs and is avoiding heavy lifting. Doc Cody MD [address] [facility] , [address] [address], [place], [address], [facility] - [facility] 10/04/2017 11:49:18 10/03/2017 text/html She is here for a trial of trigger point injection in her right trapezius muscle under ultrasound guidance. Doc Cody MD [address] [facility] , [address], [place], [address], [facility] - [facility] 10/04/2017 11:47:30 10/17/2017 text/html She is here for a repeat trigger point injection in right trapezius muscle under ultrasound guidance. She reports good pain benefit with last injection. She is complaining pain in the left side of her upper back as well. Doc Cody MD [address] [facility] , [address], [place], [address], [place] [facility] 10/25/2017 08:55:03 11/07/2017 text/html She is here for a trial of trigger point injection in her left trapezius muscle under ultrasound guidance. She reports good ongoing pain benefit with right trapezius muscle injection. Doc Cody MD [address] [facility] , [address], [place], [address], [facility] 11/11/2017 10:14:12 OBGyn Episode No OBEpisode recorded.
--- NOTE | 2024-05-25 15:18 | HO.SPINEOV ---
Intake Visit Reasons: recurring neck pain after surgery Intake Note: Ms. 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 She is continuing to have significant amounts of daily neck pain not only down in the lower cervical areas but in the upper cervical radiating to the back of her head and a long the tops of her shoulders toward her trapezius. More recently she had a flare-up that was associated her bending forward to pick something up. It was associated with some tingling of her index finger as well. She she want to come talk to me to make sure that nothing new was going on. She just recently completed a few months of physical therapy and unfortunately it did not have any lasting effect. She continues to do multiple medications throughout the day including gabapentin, lidocaine patches, [id number]-[id number] medications anti-inflammatories etc.. Exam is otherwise unremarkable with the exception of reduced range of motion of the neck and tenderness on the back of her neck. X-rays today show good evidence of fusion throughout all 3 constructs of her anterior cervical fusion sites. I do not see any significant degeneration above or below the fusion at this point. Because of the recent increase in the neck pain, and failure of all the nonsurgical modalities, I think it is at least worth looking to see if she has not herniated yet another disc. I will order this at [facility] so we can compare to her old imaging. I will call her with the results. Total amount of time spent in this visit was 20 minutes in discussion of symptoms, order imaging and discussing x-ray results and subsequent plan of care Ryan Candelaria MD,PhD [facility] Orders: Orders XR cervical spine 4V Today M54.2 - Cervicalgia MR cervical spine wo con Today M54.2 - Cervicalgia Coding Level of Care Code Est Pt Level 3 (17058) Diagnoses Cervicalgia M54.2
== END 2024-05-25 15:43 | disposition home or self-care (01) ==
PROVIDERS: PCP Internal Medicine; Visit Provider Physician Assistant
DX: M54.2 Cervicalgia (principal)
CPT/HCPCS: 99213

== ENCOUNTER → 2024-05-25 15:21 | Outpatient (BNV) | payer MEDICAID, SELFPAY | PROVIDERS: PCP Internal Medicine; Visit Provider Radiology Diagnostic Radiology | DX: M54.2 Cervicalgia (principal) | CPT/HCPCS: 72050 ==

== ENCOUNTER 2025-03-11 11:39 | Outpatient (AMB) | payer MEDICAID, SELFPAY ==
--- NOTE | 2025-03-11 12:01 | HO.SPINEOV ---
Intake Visit Reasons: Neck pain Intake Note: Ms. Marcelo is here today c/o of worsening neck pain. 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 . She was doing some heavy lifting moving some things from 1 shed to another and strained her neck. It has been bothering her quite a bit since that time along the back of the neck more so down toward the C7 area. She has had a little bit of numbness in her right arm as well. She has been taking oxycodone, ibuprofen, Tylenol and some gabapentin. It is still very stiff and sore and she has had a hard time being at work so she has been out of work now for the last week or so. She has a history of 3 level fusion in her neck. This sounds more like muscular injury than anything else related to the lifting. I will get a set of x-rays and send her to PT but I think she may need a little time off work while this rehabilitates. I gave her a note to be out for 1 month. Once she has completed PT and if she is no better, I would be happy to see her back. Total amount of time spent in this visit was 20 minutes in discussion of symptoms, cervical x-rays imaging results and subsequent plan of care Ryan Candelaria MD,PhD [facility] Orders: Orders XR cervical spine 4V Today M54.2 - Cervicalgia PT Evaluation and Treatment Today M54.2 - Cervicalgia Coding Level of Care Code Est Pt Level 3 (85838) Diagnoses Cervicalgia M54.2
--- OUTSIDE RECORDS SUMMARY | 2025-03-12 00:02 | XMS_ITS | Data Portability ---
Author Organization [facility], PAIN OFFICE Address [address] [address] Care Team Providers Care Water Attendant Name Role Phone SALINA MCCURDY Primary Care Provider [phone] Assessment Encounter Date Assessment Date Assessment LastModified [...] appointment has been made for the same. [email or web address] Not available 09/30/2017 10:44:41 10/03/2017 10/03/2017 Keisha [...] in two weeks to assess the benefits. [email or web address] Not available 10/03/2017 15:27:45 10/17/2017 10/17/2017 Keisha [...] By Organization Details Last Modified Time 09/30/2017 [id number] She was advised against bed rest lasting longer than four days and to continue activities as tolerated. [email or web address] Not available 09/30/2017 10:44:11 10/03/2017 [id number] She was advised against bed rest lasting longer than four days and to continue activities as tolerated. [email or web address] Not available 10/03/2017 15:26:34 10/17/2017 [id number] She was advised against bed rest lasting longer than four days and to continue activities as tolerated. [email or web address] Not available 10/17/2017 15:25:49 11/07/2017 [id number] She was advised against bed rest lasting longer than four days and to continue activities as tolerated. [email or web address] Not available 11/07/2017 14:22:34 Reason for Referral None Reported. Problems Name Problem SNOMED Code Status Onset Date Resolution Date Notes Provider Name and Address Organization Details Recorded Time Degeneratio n of cervical interverteb ral disc 11252023 Active Doc dowling MD [address] , [address], [place], [address], [place] [facility] 8 09:56:54 Muscle pain 84800806 Active Doc dowling MD [address] [employer] [facility] , [address], [place], [address], [place] [facility] 8 09:57:06 History of cervical spine fusion 8654599268816 Active Doc dowling MD [address] [employer] [facility] , [address], [place], [address], [place] [facility] 8 09:57:20 Problem Notes None recorded. Procedures Surgical History Date Name Laterality Status Provider Name and Address Organization Details Recorded Time 8 Trigger Point Injections under ultrasound guidance completed Doc Cody MD [address] , [address], [place], [address], [place] [facility] 11/07/2017 14:23:46 8 Trigger Point Injections under ultrasound guidance completed Doc Cody MD [address] , [address], [place], [address], [place] [facility] 10/17/2017 15:25:09 8 Trigger Point Injections under ultrasound guidance completed Doc Cody MD [address] [employer] [facility] , [address], [place], [address], [place] [facility] 10/03/2017 [...] Body mass index (BMI) Body weight Systolic And Diastolic Provider Name and Address Organization Details Last Updated DateTime 8 71 /min 98 % 98 % 167.64 cm 27.4 kg/m2 63608.7 g 126/73 mm[Hg] [facility] 8 09:14:13 Date Recorded Body height Heart rate Oxygen saturation Oxygen saturation in Arterial blood by Pulse oximetry Systolic And Diastolic Provider Name and Address Organization Details Last Updated DateTime 8 167.64 cm 80 /min 97 % 97 % 110/58 mm[Hg] [facility] 8 13:58:42 Date Recorded Body height Heart rate Oxygen saturation Oxygen saturation in Arterial blood by Pulse oximetry Systolic And Diastolic Provider Name and Address Organization Details Last Updated DateTime 8 167.64 cm 80 /min 98 % 98 % 120/64 mm[Hg] [facility] 8 14:58:07 Date Recorded Body height Heart rate Oxygen saturation Oxygen saturation in Arterial blood by Pulse oximetry Systolic And Diastolic Provider Name and Address Organization Details Last Updated DateTime 8 167.64 cm 65 /min 99 % 99 % 135/66 mm[Hg] [facility] 8 13:43:14 Social History Question Answer Notes LastModified by Organizat ion Details LastModified Time Tobacco Smoking Status Current Every Day Smoker Vapor Not Available [facility] 02/08/2020 03:16:11 Which Illicit Or Recreational Drugs Have You Used? No [id number] Information not available 02/08/2020 Education 2 Year College [employer] [email or web address] Information not available 09/30/2017 Live Alone Or With Others? With Others Mother [email or web address] Information not available 09/30/2017 Marital Status Single Informatio n not available 09/30/2017 What Was The Date Of Your Most Recent Tobacco Screening? 11/07/2017 [id number] Information not available 02/08/2020 How Many Years Have You Smoked Tobacco? 5 [id number] Information not available 02/08/2020 Sex: Unknown Functional Status Question Answer Note LastModified by Organizat ion Details LastModified Time What is your level of alcohol consumption? Occasional [id number] Information not available 02/08/2020 Are you currently employed? 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 Family History Relationship Description Onset Age of this Age Resolved Age Notes LastModified by Organization Details LastModified Time Father Coronary arterioscler osis [email or web address] Not available 2017 09:17:49 Medical History Condition Response Anxiety Disorder Y Headache Y Irritable Bowel Syndrome Y Depression Y Gynecological HistoryNo gynecological history recorded. Obstetrics History GPAL:G 0 P 0 0 0 0 Past Encounters Encounter ID Performer Location Encounter Start Date Encounter Closed Date Diagnosis/Indication Diagnosis SNOMED-CT Code Diagnosis ICD10 Code Diagnosis IMO Codes Diagnosis Note [id number] Doc Cody MD PAIN OFFICE [address] [place] [address] 09/30/2017 08:58:55 09/30/2017 10:52:07 Muscle pain 50933397 M79.1 Degenerati on of cervical intervertebral disc 59607881 M50.30 History of cervical spine fusion 1679161979 101 Z98.1 [id number] Doc Cody MD PAIN OFFICE [address] [place] [address] 10/03/2017 13:25:15 10/03/2017 15:35:37 Muscle pain 46009681 M79.1 Degenerati on of cervical intervertebral disc 66146342 M50.30 History of cervical spine fusion 3578864492 101 Z98.1 [id number] Doc Cody MD PAIN OFFICE [address] [facility] [place] [address] 10/17/2017 14:22:11 10/17/2017 15:27:06 Muscle pain 88078229 M79.1 Degenerati on of cervical intervertebral disc 28904419 M50.30 History of cervical spine fusion 5289621683 101 Z98.1 [id number] Doc Cody MD PAIN OFFICE [address] [facility] [place] [address] 11/07/2017 13:21:23 11/07/2017 14:25:53 Muscle pain 26229154 M79.1 Degenerati on of cervical intervertebral disc 75220665 M50.30 History of cervical spine fusion 4745631660 101 Z98.1 Health Concerns Section Related Observation LastModified by Organization Detai ls LastModified Time None Recorded Concern Status LastModified by Organization Details LastModified Time None Recorded Advance Directives Directive None Recorded Payers Insurance Date Sequence Insurance Name Policy Number Policy Wagner Covered Member ID Wagner Member ID Guarantor Name 12/05/2017 1 [place] [employer] 111 Keisha Marcelo [id number] Keisha Marcelo 12/05/2017 2 [place] [facility] Keisha Marcelo [id number] Keisha Marcelo Notes Date Note Type Note [...] avoiding heavy lifting. Doc Cody MD [address] [facility] , [address], [place], [address], [facility] 10/04/2017 11:49:18 10/03/2017 text/html She is here for a trial of trigger point injection in her right trapezius muscle under ultrasound guidance. Doc Cody MD [address] [facility] , [address], [place], [address], [place] [facility] 10/04/2017 11:47:30 10/17/2017 text/html She is here for a repeat trigger point injection in right trapezius muscle under ultrasound guidance. She reports good pain benefit with last injection. She is complaining pain in the left side of her upper back as well. Doc Cody MD [address] [facility] , [address], [place], [address], [facility] 10/25/2017 08:55:03 11/07/2017 text/html She is here for a trial of trigger point injection in her left trapezius muscle under ultrasound guidance. She reports good ongoing pain benefit with right trapezius muscle injection. Doc Cody MD [address] [facility] , [address], [place], [address], [facility] 11/11/2017 10:14:12 OBGyn Episode No OBEpisode recorded.
== END 2025-03-11 12:46 | disposition home or self-care (01) ==
LOC: HO.HNS 11:40
PROVIDERS: PCP Internal Medicine; Visit Provider Physician Assistant
DX: M54.2 Cervicalgia (principal)
CPT/HCPCS: 99213

== ENCOUNTER 2025-03-11 11:39 | Outpatient (REF) | payer MEDICAID, SELFPAY ==
--- NOTE | ~2025-03-11 | XR_ITS ---
EXAMINATION: XR CERVICAL SPINE CLINICAL INFORMATION: M54.2 - Cervicalgia COMPARISON: May 25, 2024. TECHNIQUE: Lateral views in neutral, flexion and extension position. FINDINGS: There is a 1 mm anterolisthesis at C3-4 there are in flexion and extension position with normal alignment in neutral position. Intervertebral body disc spacer placement C4-5. Status post arthrodesis and anterior metallic plate fusion C5 C7, intact with normal alignment. XR/XR cervical spine 4V IMPRESSION: Instability at C3-4 during flexion and extension. Electronically signed by: Clive Mathias MD 03/11/2025 01:46 PM EST
== END 2025-03-11 11:40 | disposition home or self-care (01) ==
LOC: HO.HOSX 11:39
PROVIDERS: PCP Internal Medicine; Visit Provider Physician Assistant
DX: M54.2 Cervicalgia (principal); Z79.899 Other long term (current) drug therapy
CPT/HCPCS: 72050; 99212

== ENCOUNTER → 2025-03-11 12:44 | Outpatient (BNV) | payer MEDICAID, SELFPAY | PROVIDERS: PCP Internal Medicine; Visit Provider Radiology Diagnostic Radiology | DX: M53.2X2 Spinal instabilities, cervical region (principal) | CPT/HCPCS: 72050 ==

== ENCOUNTER 2025-04-04 14:06 | Outpatient (AMB) | payer MEDICAID, SELFPAY ==
--- NOTE | 2025-04-04 14:26 | A.SPINEOV_ITS ---
Intake Visit Reasons: Follow up after PT Intake Note: Ms. Marcelo is here today to F/u after PT. 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 She is still continuing to have significant neck pain. She has been working with PT now for about 2-1/2 weeks. There was some improvement in the short term when she is doing it, but later in the day the symptoms will worsen slightly. She has not returned to work. She is requesting more time off, so I gave her a note to be out through April 30 2025. We reviewed her x-rays again and talked about the fact that because she has a 3 level fusion in her neck, we need to proceed with caution when we discuss any potential future surgery as there are only a few [facility] discs left. We would need to have a very high threshold for going back in and doing more surgery. She is in agreement, she would like to postpone any potential surgery. Right now in the x-rays I do not see anything that looks like we need to raise his to a surgical level so that is reassuring. She will follow up with us as needed. I told her she needs any disability paperwork, or notes for further time off from work she will have to see her primary care physician. Total amount of time spent in this visit was 20 minutes in discussion of symptoms, cervical x-ray imaging results and subsequent plan of care Ryan Candelaria MD,PhD [facility] Coding Level of Care Code Est Pt Level 3 (36526) Diagnoses Cervical radiculopathy M54.12
== END 2025-04-04 15:24 | disposition home or self-care (01) ==
LOC: HO.HNS 14:07
PROVIDERS: PCP Internal Medicine; Visit Provider Physician Assistant
DX: M54.12 Radiculopathy, cervical region (principal)
CPT/HCPCS: 99213

== ENCOUNTER → 2025-04-04 14:06 | Outpatient (BNVA) | payer MEDICAID, SELFPAY | PROVIDERS: PCP Internal Medicine; Visit Provider Physician Assistant | DX: M54.12 Radiculopathy, cervical region (principal) | CPT/HCPCS: 99212 ==